=== PATIENT | male | born 1980 | race Caucasian/White ===

== ENCOUNTER 2020-09-25 19:52 | Emergency (ER) | payer BC, OTHER ==
[~2020-09-25] VITALS: Ht 182.9 cm; Wt 124.7 kg
[2020-09-25 19:54] VITALS: BP 113/89
[2020-09-25] MEDS ORDERED: LIPOFEN150 MG PO (20:01)
== END 2020-09-25 21:29 | disposition home or self-care (01) ==
LOC: ER 19:52
DX: S61.412A Laceration without foreign body of left hand, initial encounter (principal); Z88.1 Allergy status to other antibiotic agents; Z88.0 Allergy status to penicillin; W45.8XXA Other foreign body or object entering through skin, initial encounter; Y93.89 Activity, other specified; Y92.89 Other specified places as the place of occurrence of the external cause; Y99.8 Other external cause status